=== PATIENT | male | born 1990 | race African-American/Black ===

== ENCOUNTER 2018-10-28 11:02 | Emergency (ER) | payer SELFPAY ==
--- NOTE | 2018-10-28 11:04 | PDOC ---
History of Present Illness - General Chief Complaint: Altered Mental Status Stated Complaint: Altered Mental Status Time Seen by Provider: 10/28/18 11:04 - History of Present Illness Initial Comments: 10/28/18 11:57 Mr. James is a 28 yo male w/ unknown pmh who presents for evaluation of altered mental status. Patient admits to doing MDMA earlier today. Currently reports he wants to be left alone and to sleep. Has no complaints at this time. Past History - Past Medical History Allergies/Adverse Reactions: Allergies Allergy/AdvReac Type Severity Reaction Status Date / Time No Known Allergies Allergy Verified 10/28/18 11:08 Review of Systems - Review of Systems Comments:: 10/28/18 12:09 Unable to obtain further. *Physical Exam - Physical Exam Comments: 10/28/18 12:09 GENERAL: Awake, alert, and fully oriented, in no acute distress HEAD: No signs of trauma, normocephalic, atraumatic EYES: PERRLA, EOMI, sclera anicteric, conjunctiva clear ENT: Auricles normal inspection, hearing grossly normal, nares patent, oropharynx clear without exudates. Moist mucosa NECK: Normal ROM, supple, no lymphadenopathy, JVD, or masses LUNGS: No distress, speaks full sentences, clear to auscultation bilaterally HEART: Regular rate and rhythm, normal S1 and S2, no murmurs, rubs or gallops, peripheral pulses normal and equal bilaterally. ABDOMEN: Soft, nontender, normoactive bowel sounds. No guarding, no rebound. No masses EXTREMITIES: Normal inspection, Normal range of motion, no edema. No clubbing or cyanosis. NEUROLOGICAL: +Unable to assess further SKIN: Warm, Dry, normal turgor, no rashes or lesions noted. Medical Decision Making - Medical Decision Making 10/28/18 13:06 Mr. James is a 28 yo male w/ pmh as described who presents for evaluation of symptoms c/w intox. Patient admits to using drugs however is unable to ellicit what he used. Utox sent for evaluation significant for Amphetamines, Marijuana, and MDMA. Patient resting comfortably at this time. 10/28/18 14:52 Patient noted to be alert with stable gait. Patient eloped from hospital. *DC/Admit/Observation/Transfer Diagnosis at time of Disposition: Eloped from emergency department - Discharge Dispostion Disposition: ELOPED - Referrals - Patient Instructions - Post Discharge Activity
[2018-10-28 11:08] VITALS: BP 132/76; PULSE 68; TEMP 97.3; BMI 21.1
--- NOTE | 2018-10-28 12:07 | PDOC ---
Documentation entered by Gemma Peter SCRIBE, acting as scribe for Suyapa Esposito MD. Suyapa Esposito MD: This documentation has been prepared by the [place] coello Mackenzie, SCRIBE, under my direction and personally reviewed by me in its entirety. I confirm that the documentation accurately reflects all work , treatment, procedures, and medical decision making performed by me. Attending Attestation - Resident Resident Name: Mark Mcdaniel - ED Attending Attestation I have performed the following: I have examined & evaluated the patient, The case was reviewed & discussed with the resident, I agree w/resident's findings & plan, Exceptions are as noted - HPI HPI: 28 yo M BIBEMS with altered mental status, possible intox vs drug abuse. Refused to answer any questions on arrival, became violent. Somnolent, but awakens to voice. - Physicial Exam PE: GENERAL: Somnolent, awakens to voice. HEAD: No signs of trauma EYES: PERRLA, EOMI, sclera anicteric, conjunctiva clear NEUROLOGICAL: Cranial nerves II through XII grossly intact. Normal speech, normal gait. Motor and sensation intact SKIN: Warm, Dry, normal turgor, no rashes or lesions noted. - Medical Decision Making Exam limited by patient's violent behavior. Condition 10 called, patient was verbally de-escalated. No signs of head trauma. Will monitor to clinical sobriety in ED. 10/28/18 13:00 Pt positive for amphetamines, MDMA, and marijuana. Sleeping at present. Will cont to monitor to clinical sobriety.
[2018-10-28 12:58] LABS: COCAINE, UR NEGATIVE ng/ml (CUTOFF=300); METHADONE, UR NEGATIVE ng/ml (CUTOFF=300); OPIATES, URI NEGATIVE ng/ml (CUTOFF=300); PHENCYCLIDINE,URINE NEGATIVE ng/ml (CUTOFF=25); URINE BARBITURATES NEGATIVE ng/ml (CUTOFF=200); URINE BENZODIAZEPINES NEGATIVE ng/ml (CUTOFF=200)
[2018-10-28 13:00] LABS: URINE AMPHETAMINES POSITIVE ng/ml (CUTOFF=500)
== END 2018-10-28 14:25 | disposition left against medical advice (07) ==
LOC: JER 11:02
DX: F15.10 Other stimulant abuse, uncomplicated (principal); F12.10 Cannabis abuse, uncomplicated
CPT/HCPCS: 36415; 80307; 99281-25; G0480